=== PATIENT | male | born 1950 | race Caucasian/White ===

== ENCOUNTER 2020-05-04 00:03 | Emergency (ER) | payer MEDICARE, BC ==
[2020-05-04] MEDS ORDERED: Sodium Chloride 0.9% 1,000 ML IV ONE ×2 (00:15→02:20)
[2020-05-04 00:46] LABS: CHLORIDE,CL 93 mmol/L (98-107)
[2020-05-04 00:52] LABS: SODIUM,NA 124 mmol/L (136-145)
[2020-05-04] MEDS ORDERED: Iopamidol 755 Mg/ML 100 ML Bottle IVPUSH STA (00:57)
[2020-05-04] MEDS ORDERED: Acetaminophen 325 MG Tab ONE (01:32)
[2020-05-04] MEDS ORDERED: Acetaminophen 325 MG Tab PO ONE (01:32)
--- NOTE | 2020-05-04 02:38 | EDM.PDOC ---
ED HPI GENERAL MEDICAL PROBLEM - General Chief Complaint: Respiratory Problem Stated Complaint: dyspnea Time Seen by Provider: 05/04/20 00:43 Source of Information: Reports: Patient, EMS, Family History Limitations: Reports: No Limitations - History of Present Illness INITIAL COMMENTS - FREE TEXT/NARRATIVE: Patient comes to ER due to complaint of SOB that developed around 8pm or so this past evening. Notes that he had low grade fever earlier in the morning and chills. Similar problems around 3 weeks ago/negative Covid test. Was told by Oncologist that it might be due to a reaction to his cancer medication. [place] ok day before yesterday. Being treated for lung cancer at [facility]. No new cough/sputum. No new pain complaints. No other acute changes mentioned during ROS. Was around 30 family members over . No one was actively ill. 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 - Related Data Allergies Allergy/AdvReac Type Severity Reaction Status Date / Time clindamycin Allergy Rash Verified 05/04/20 00:24 Home Meds: Home Meds Dabrafenib Mesylate [Tafinlar] 150 mg PO BID 05/04/20 [History] Montelukast [Singulair] 10 mg PO BEDTIME 05/04/20 [History] Trametinib Dimethyl Sulfoxide [Mekinist] 2 mg PO DAILY 05/04/20 [History] lisinopriL [Lisinopril] 10 mg PO DAILY 05/04/20 [History] Past Medical History HEENT History: Reports: Impaired Vision Cardiovascular History: Reports: Other (See Below) Other Cardiovascular History: nonrheumatic aortic valve stenosis Respiratory History: Reports: Sleep Apnea, Other (See Below) Other Respiratory History: RLL non-small cell lung cancer Genitourinary History: Reports: BPH, Prostate Disorder Endocrine/Metabolic History: Reports: Obesity/BMI 30+ Oncologic (Cancer) History: Reports: Lung - Past Surgical History Cardiovascular Surgical History: Reports: None Respiratory Surgical History: Reports: Lung Biopsies, Thoracentesis, Other (See Below) Other Respiratory Surgeries/Procedures: pleur-x drain in place to right lung GI Surgical History: Reports: Bariatric Procedure Male Surgical History: Reports: None Endocrine Surgical History: Reports: None Oncologic Surgical History: Reports: None Social & Family History - Tobacco Use Tobacco Use Status *Q: Never Tobacco User ED ROS GENERAL - Review of Systems Review Of Systems: See Below Constitutional: Reports: Fever, Chills. Denies: Malaise, Weakness, Night Sweats, Diaphoresis, Decreased Appetite, Weight Loss, Weight Gain HEENT: Reports: Other (no acute changes) Respiratory: Reports: Shortness of Breath. Denies: Wheezing, Pleuritic Chest Pain, Cough, Sputum, Hemoptysis Cardiovascular: Reports: No Symptoms. Denies: Chest Pain, Edema, Lightheadedness, Palpitations, Syncope GI/Abdominal: Denies: Abdominal Pain, Constipation, Diarrhea, Distension, Melena, Nausea, Vomiting : Reports: Other (no acute changes reported) Musculoskeletal: Reports: Other (no acute changes from baseline) Skin: Reports: Other (no acute changes) Psychiatric: Reports: No Symptoms ED EXAM, GENERAL - Physical Exam Exam: See Below Exam Limited By: No Limitations General Appearance: Alert, No Apparent Distress, Obese Eye Exam: Bilateral Eye: EOMI, PERRL Ears: Normal External Exam, Hearing Grossly Normal Nose: No: Nasal Deformity, Nasal Swelling, Nasal Drainage Throat/Mouth: Normal Lips, Normal Voice, No Airway Compromise Head: Atraumatic, Normocephalic Neck: Supple, Non-Tender, Full Range of Motion Respiratory/Chest: No Accessory Muscle Use, Chest Non-Tender, Rales (faint/bases). No: Rhonchi, Wheezing, Stridor Cardiovascular: Regular Rate, Rhythm, No Edema, No Murmur GI/Abdominal: Soft, Non-Tender, No Distention (Male) Exam: Deferred Rectal (Males) Exam: Deferred Back Exam: No: CVA Tenderness (L), CVA Tenderness (R), Muscle Spasm Extremities: Non-Tender, No Pedal Edema, Normal Capillary Refill Neurological: Alert, Oriented, Normal Cognition, No Motor/Sensory Deficits Psychiatric: Normal Affect, Normal Mood Skin Exam: Warm, Dry, Intact, Normal Color #1 Interpretation EKG Date: 05/04/20 Time: 00:25 Rhythm: Other (sinus tach) Rate (Beats/Min): 121 [place]: Normal P-Wave: Present QRS: Normal ST-T: Normal QT: Normal Comparison: NA - No Prior EKG Course - Vital Signs Last Recorded V/S: Last Vital Signs Temp 37.5 C 05/04/20 02:18 Pulse 99 12/27/20 02:18 Resp 31 H 05/04/20 02:18 BP 82/58 L 05/04/20 02:18 Pulse Ox 97 05/04/20 02:18 - Orders/Labs/Meds Orders: Active Orders 24 hr Category Date Time Status EKG Documentation Completion [RC] ASDIRECTED Care 05/04/20 00:21 Active Chest 1V Frontal [CR] Stat Exams 05/04/20 00:19 Taken PE Chest [Ang Chest] [CT] Stat Exams 05/04/20 00:56 Taken CULTURE BLOOD [BC] Stat Lab 05/04/20 00:15 Received CULTURE BLOOD [BC] Stat Lab 05/04/20 00:20 Received Sodium Chloride 0.9% [Normal Saline] 1,000 ml Med 05/04/20 02:20 Ordered IV .BOLUS Blood Culture x2 Reflex Set [OM.PC] Stat Oth 05/04/20 00:19 Ordered Medication Orders Sodium Chloride (Normal Saline) 1,000 mls @ 500 mls/hr IV .BOLUS ONE Stop: 05/04/20 04:19 Last Admin: 05/04/20 02:21 Dose: 500 mls/hr Documented by: [id number] Labs: Laboratory Tests 05/04/20 05/04/20 05/04/20 Range/Units 00:15 00:15 00:15 WBC 3.3 L (4.0-10.2) K/uL RBC 4.40 (4.33-5.41) M/uL Hgb 13.5 D (13.1-16.8) g/dL Hct 37.9 L (39.0-49.0) % MCV 86.1 D (84.0-98.0) fL MCH 30.7 (28.2-33.3) pg MCHC 35.6 (31.7-36.0) g/dL RDW 14.9 H (11.2-14.1) % Plt Count 109 L D (150-350) K/uL Neut % (Auto) 80.8 H (45.0-80.0) % Lymph % (Auto) 14.0 (10.0-50.0) % [place] % (Auto) 4.9 (2.0-14.0) % Eos % (Auto) 0.0 (0.0-5.0) % Baso % (Auto) 0.3 (0.0-2.0) % Neut # (Auto) 2.65 (1.40-7.00) K/uL Lymph # (Auto) 0.46 L (0.50-3.50) K/uL [place] # (Auto) 0.16 (0.00-1.00) K/uL Eos # (Auto) 0.00 (0.00-0.50) K/uL Baso # (Auto) 0.01 (0.00-0.20) K/uL D-Dimer, Quantitative > 5000 H (0-400) ng/mL Sodium 124 L* D (136-145) mmol/L Potassium 4.3 (3.5-5.1) mmol/L Chloride 93 L (98-107) mmol/L Carbon Dioxide 19.2 L (21.0-32.0) mmol/L BUN 28 H (7-18) mg/dL Creatinine 0.88 (0.51-1.17) mg/dL Est Cr Clr Drug Dosing 61.18 mL/min Estimated GFR (MDRD) > 60 mL/min Glucose 188 H (74-106) mg/dL Lactic Acid (0.4-2.0) mmol/L Calcium 7.8 L (8.5-10.1) mg/dL Magnesium 1.7 L (1.8-2.4) mg/dL Total Bilirubin 0.5 (0.2-1.0) mg/dL AST 163 H (15-37) U/L ALT 72 (12-78) U/L Alkaline Phosphatase 123 H (46-116) IU/L Troponin I 3.229 H* (0.000-0.056) ng/mL NT-Pro-B Natriuret Pep 54281 H (0-125) pg/mL Total Protein 6.0 L (6.4-8.2) g/dL Albumin 2.7 L (3.4-5.0) g/dL 05/04/20 Range/Units 00:15 WBC (4.0-10.2) K/uL RBC (4.33-5.41) M/uL Hgb (13.1-16.8) g/dL Hct (39.0-49.0) % MCV (84.0-98.0) fL MCH (28.2-33.3) pg MCHC (31.7-36.0) g/dL RDW (11.2-14.1) % Plt Count (150-350) K/uL Neut % (Auto) (45.0-80.0) % Lymph % (Auto) (10.0-50.0) % [place] % (Auto) (2.0-14.0) % Eos % (Auto) (0.0-5.0) % Baso % (Auto) (0.0-2.0) % Neut # (Auto) (1.40-7.00) K/uL Lymph # (Auto) (0.50-3.50) K/uL [place] # (Auto) (0.00-1.00) K/uL Eos # (Auto) (0.00-0.50) K/uL Baso # (Auto) (0.00-0.20) K/uL D-Dimer, Quantitative (0-400) ng/mL Sodium (136-145) mmol/L Potassium (3.5-5.1) mmol/L Chloride (98-107) mmol/L Carbon Dioxide (21.0-32.0) mmol/L BUN (7-18) mg/dL Creatinine (0.51-1.17) mg/dL Est Cr Clr Drug Dosing mL/min Estimated GFR (MDRD) mL/min Glucose (74-106) mg/dL Lactic Acid 1.4 (0.4-2.0) mmol/L Calcium (8.5-10.1) mg/dL Magnesium (1.8-2.4) mg/dL Total Bilirubin (0.2-1.0) mg/dL AST (15-37) U/L ALT (12-78) U/L Alkaline Phosphatase (46-116) IU/L Troponin I (0.000-0.056) ng/mL NT-Pro-B Natriuret Pep (0-125) pg/mL Total Protein (6.4-8.2) g/dL Albumin (3.4-5.0) g/dL Meds: Medications Generic Name Dose Route Start Last Admin Trade Name Freq PRN Reason Stop Dose Admin Sodium Chloride 1,000 mls @ 500 mls/hr 05/04/20 02:20 05/04/20 02:21 Normal Saline IV 05/04/20 04:19 500 mls/hr .BOLUS ONE Administration Discontinued Medications Generic Name Dose Route Start Last Admin Trade Name Erin PRN Reason Stop Dose Admin Acetaminophen 650 mg 05/04/20 01:32 05/04/20 01:33 Tylenol PO 05/04/20 01:33 650 mg NOW ONE Administration Acetaminophen Confirm 05/04/20 01:32 05/04/20 02:20 Tylenol Administered 05/04/20 01:33 Not Given Dose 650 mg .ROUTE .STK-MED ONE Sodium Chloride 1,000 mls @ 999 mls/hr 05/04/20 00:15 05/04/20 00:32 Normal Saline IV 05/04/20 01:15 999 mls/hr .BOLUS ONE Administration Iopamidol 100 ml 05/04/20 00:57 05/04/20 01:31 Isovue-370 (76%) IVPUSH 05/04/20 00:58 100 ml ONETIME STA Administration - Radiology Interpretation CT Results Date: 05/04/20 CT Results Time: 02:10 (Right upper lobe ground glass changes worse than last CT. Ground glass changes in lower/middle right lung better as was left side. Tumors/lymphadenopathy stable. Pulmonary arterial hyperension. ) - Re-Assessments/Exams Free Text/Narrative Re-Assessment/Exam: 05/04/20 02:43 Patient felt better on O2. O2 via NC at a few liters a minute got patient's O2 sats up to higher 90s Febrile when arrived. Given Tylenol. Fever improved. Labs obtained. Low WBC noted/patient is immune suppressed. Blood cultures pending. Hyponatremia/low Mg noted. DDimer over 5000. Trop over 3. No acute ST changes noted on EKG. Patient does not complain of chest pain. Lactic acid [place] [address]. No evidence of acute fluid overload noted on exam/plain films. Patient received IV fluid. BP ran on lower side. Patient not complaining of dizziness/worsening symptoms and continued to rest comfortably. CT of chest performed and no PE identified. Does have worsning ground glass changes right upper lung that may signify worsening pneumonia. Most recent BP however took another dip and was 82/58. Second liter of IV fluid started. Call placed to [facility] at [phone]. Still have not been able to make contact with hospitalist in order to arrange transfer of patient to their facility. 05/04/20 03:18 Call back received from [facility]/ at [phone]. Accepted patient for transfer. Patient given ASA/Heparin bolus/Rocephin prior to transfer. It was recommended to us to give Doxy instead of Zithromax in case of QT prolongation however IV form is not available here at this site. PO dose administered. Waiting for bed conformation at this time. Departure - Departure Time of Disposition: 04:00 Disposition: DC/Tfer to Acute Hospital 02 Condition: Fair Clinical Impression: SOB (shortness of breath), Hypomagnesemia, Hyponatremia, Elevated troponin CHF (congestive heart failure) Qualifiers: Heart failure type: unspecified Heart failure chronicity: unspecified Qualified Code(s): I50.9 - Heart failure, unspecified Fever Qualifiers: Fever type: unspecified Qualified Code(s): R50.9 - Fever, unspecified Lung cancer Qualifiers: Laterality: unspecified laterality Lung location: unspecified part of lung Qualified Code(s): C34.90 - Malignant neoplasm of unspecified part of unspecified bronchus or lung - Discharge Information *PRESCRIPTION DRUG MONITORING PROGRAM REVIEWED*: Not Applicable *COPY OF PRESCRIPTION DRUG MONITORING REPORT IN PATIENT YASEMIN: Not Applicable Sepsis Event Note (ED) - Evaluation Sepsis Screening Result: Possible Sepsis Risk - Focused Exam Vital Signs: Vital Signs Temp Pulse Resp BP Pulse Ox 05/04/20 02:18 37.5 C 99 31 H 82/58 L 97 05/04/20 01:34 39.6 C H 112 H 25 H 98/75 96 05/04/20 01:00 115 H 28 H 97/69 98 05/04/20 00:45 114 H 25 H 94/71 100 05/04/20 00:30 119 H 29 H 101/73 93 L 05/04/20 00:24 38.2 C H 126 H 30 H 100/69 95 - My Orders Last 24 Hours: My Active Orders 05/04/20 00:15 CULTURE BLOOD [BC] Stat 05/04/20 00:19 Chest 1V Frontal [CR] Stat Blood Culture x2 Reflex Set [OM.PC] Stat 05/04/20 00:20 CULTURE BLOOD [BC] Stat 05/04/20 00:21 EKG Documentation Completion [RC] ASDIRECTED 05/04/20 00:56 PE Chest [Ang Chest] [CT] Stat 05/04/20 02:20 Sodium Chloride 0.9% [Normal Saline] 1,000 ml IV .BOLUS - Assessment/Plan Last 24 Hours: My Active Orders 05/04/20 00:15 CULTURE BLOOD [BC] Stat 05/04/20 00:19 Chest 1V Frontal [CR] Stat Blood Culture x2 Reflex Set [OM.PC] Stat 05/04/20 00:20 CULTURE BLOOD [BC] Stat 05/04/20 00:21 EKG Documentation Completion [RC] ASDIRECTED 05/04/20 00:56 PE Chest [Ang Chest] [CT] Stat 05/04/20 02:20 Sodium Chloride 0.9% [Normal Saline] 1,000 ml IV .BOLUS
[2020-05-04] MEDS ORDERED: Aspirin 81 MG Tab.Chew PO ONE (03:12)
[2020-05-04] MEDS ORDERED: cefTRIAXone 2 GM Vial IVPUSH ONE (03:14)
[2020-05-04] MEDS ORDERED: Doxycycline Monohydrate 100 MG Cap PO ONE (03:14)
[2020-05-04] MEDS ORDERED: Heparin Sodium/0.45% NaCl 500 ML IV SCH (03:30)
[2020-05-04] MEDS ORDERED: Heparin Sodium 5,000 Units/ML Vial IVPUSH ONE (03:48)
[2020-05-04 04:10] LABS: PTT,PARTIAL THROMBOPLSTIN TIME 34.5 SEC (24.5-32.8)
== END 2020-05-04 04:22 ==
LOC: LL.ED 00:03
DX: I50.9 Heart failure, unspecified (principal); E83.42 Hypomagnesemia; E87.1 Hypo-osmolality and hyponatremia; R79.89 Other specified abnormal findings of blood chemistry; C34.90 Malignant neoplasm of unspecified part of unspecified bronchus or lung; E66.9 Obesity, unspecified; Z68.31 Body mass index [BMI] 31.0-31.9, adult; Z88.1 Allergy status to other antibiotic agents; Z79.899 Other long term (current) drug therapy
CPT/HCPCS: 36415; 71045; 71275; 80053; 83605; 83735; 83880; 84484; 85025; 85379; 85610; 85730; 87040; 93005; 96365; 96375; 99285-25; A9270-GY; J0696; J1644; J7030; Q9967

== ENCOUNTER 2021-05-25 12:17 | Inpatient (IN) | payer MEDICARE ==
[2021-05-25] MEDS ORDERED: Zolpidem 5 MG Tab PO PRN (14:20)
[2021-05-25] MEDS ORDERED: Bisacodyl 5 MG Tab PO PRN (14:20)
[2021-05-25] MEDS ORDERED: Sennosides 8.6 MG Tab PO PRN (14:20)
[2021-05-25] MEDS ORDERED: Polyethylene Glycol 3350 Powder 17 GM Packet PO PRN (14:20)
[2021-05-25] MEDS ORDERED: Calcium Carbonate 500 MG Tab.Chew PO PRN (14:20)
[2021-05-25] MEDS ORDERED: Al and Mag Hydroxide/Diphenhydramine/Lidocaine/Simethicone 237 ML Bottle PO PRN (14:42)
[2021-05-25] MEDS ORDERED: oxyCODONE 5 MG Tab PO PRN (16:00)
[2021-05-25] MEDS ORDERED: Aluminum Hydroxide/Magnesium Hydroxide/Simethicone Susp 30 ML Cup PO PRN (16:00)
[2021-05-25] MEDS ORDERED: Ondansetron 4 MG Tab.DIS PO PRN (16:00)
[2021-05-25] MEDS ORDERED: Promethazine 25 MG Tab PO PRN (16:00)
[2021-05-25] MEDS ORDERED: Albuterol 6.7 GM Inhaler INH PRN (16:00)
[2021-05-25] MEDS ORDERED: Meropenem 500 MG SDV IV SCH (16:00)
[2021-05-25] MEDS: Meropenem 500 MG in Sodium Chloride 0.9% 100 ML IV SCH ×2 (16:23→23:43)
[2021-05-25] MEDS: Enoxaparin 40 MG/0.4 ML Syringe SUBCUT SCH (16:23)
[2021-05-25] MEDS: Sodium Chloride 0.9% 10 ML Syringe FLUSH SCH ×4 (16:24→23:44)
[2021-05-25] MEDS: Magnesium Oxide 400 MG Tab PO SCH (17:35)
[2021-05-25] MEDS: Multivitamin Tab PO SCH (17:35)
[2021-05-25] MEDS: Montelukast 10 MG Tab PO SCH (19:27)
[2021-05-26] MEDS ORDERED: Non-Formulary Medication 1 Each (Biotin [Biotin] 5 MG Capsule) PO SCH (08:00)
[2021-05-26] MEDS: Polyethylene Glycol 3350 Powder 17 GM Packet PO SCH (08:57)
[2021-05-26] MEDS: Magnesium Oxide 400 MG Tab PO SCH ×2 (08:58→17:09)
[2021-05-26] MEDS: Cyanocobalamin (Vitamin B12) 1,000 MCG Tab PO SCH (08:59)
[2021-05-26] MEDS: Lisinopril 5 MG Tab PO SCH (08:59)
[2021-05-26] MEDS: Aspirin 81 MG Tab.EC PO SCH (09:03)
[2021-05-26] MEDS: Calcium Carbonate/Vitamin D3 625 MG-125 Unit Tab PO SCH (09:03)
[2021-05-26] MEDS: Rosuvastatin 10 MG Tab PO SCH (09:03)
[2021-05-26] MEDS: Omeprazole 20 MG Cap.CR PO SCH (09:04)
[2021-05-26] MEDS: Metoprolol Succinate 25 MG Tab.ER PO SCH (09:04)
[2021-05-26] MEDS: Multivitamin Tab PO SCH ×2 (09:06→17:09)
[2021-05-26] MEDS: FLUoxetine 20 MG Cap PO SCH (09:06)
[2021-05-26] MEDS: Cholecalciferol (Vitamin D3) 25 MCG Tab PO SCH (09:06)
[2021-05-26] MEDS: Bisacodyl 10 MG Supp RECTAL SCH (09:07)
[2021-05-26] MEDS: Meropenem 500 MG in Sodium Chloride 0.9% 100 ML IV SCH ×2 (09:08→17:11)
[2021-05-26] MEDS: Sodium Chloride 0.9% 10 ML Syringe FLUSH SCH ×6 (09:08→17:09)
[2021-05-26] MEDS: Levothyroxine 25 MCG Tab PO SCH (09:55)
[2021-05-26] MEDS: Enoxaparin 40 MG/0.4 ML Syringe SUBCUT SCH (17:09)
[2021-05-26] MEDS: Montelukast 10 MG Tab PO SCH (20:08)
[2021-05-27] MEDS: Sodium Chloride 0.9% 10 ML Syringe FLUSH SCH ×10 (00:32→23:41)
[2021-05-27] MEDS: Meropenem 500 MG in Sodium Chloride 0.9% 100 ML IV SCH ×4 (00:32→23:12)
[2021-05-27] MEDS: Metoprolol Succinate 25 MG Tab.ER PO SCH (09:37)
[2021-05-27] MEDS: Calcium Carbonate/Vitamin D3 625 MG-125 Unit Tab PO SCH (09:39)
[2021-05-27] MEDS: Rosuvastatin 10 MG Tab PO SCH (09:39)
[2021-05-27] MEDS: Magnesium Oxide 400 MG Tab PO SCH ×2 (09:39→17:02)
[2021-05-27] MEDS: Multivitamin Tab PO SCH ×2 (09:39→17:01)
[2021-05-27] MEDS: Lisinopril 5 MG Tab PO SCH (09:40)
[2021-05-27] MEDS: Aspirin 81 MG Tab.EC PO SCH (09:40)
[2021-05-27] MEDS: Omeprazole 20 MG Cap.CR PO SCH (09:43)
[2021-05-27] MEDS: FLUoxetine 20 MG Cap PO SCH (09:44)
[2021-05-27] MEDS: Cyanocobalamin (Vitamin B12) 1,000 MCG Tab PO SCH (09:44)
[2021-05-27] MEDS: Polyethylene Glycol 3350 Powder 17 GM Packet PO SCH (09:45)
[2021-05-27] MEDS: Bisacodyl 10 MG Supp RECTAL SCH (09:45)
[2021-05-27] MEDS: Cholecalciferol (Vitamin D3) 25 MCG Tab PO SCH (10:01)
[2021-05-27 10:26] LABS: CHLORIDE,CL 109 mmol/L (98-107); SODIUM,NA 143 mmol/L (136-145)
[2021-05-27 10:30] LABS: ANION GAP 11.1 meq/L (7-15)
[2021-05-27] MEDS: Levothyroxine 25 MCG Tab PO SCH (10:51)
[2021-05-27] MEDS: Enoxaparin 40 MG/0.4 ML Syringe SUBCUT SCH (16:30)
[2021-05-27] MEDS: Montelukast 10 MG Tab PO SCH (17:01)
[2021-05-28] MEDS: Rosuvastatin 10 MG Tab PO SCH (09:06)
[2021-05-28] MEDS: Omeprazole 20 MG Cap.CR PO SCH (09:06)
[2021-05-28] MEDS: Calcium Carbonate/Vitamin D3 625 MG-125 Unit Tab PO SCH (09:06)
[2021-05-28] MEDS: Lisinopril 5 MG Tab PO SCH (09:06)
[2021-05-28] MEDS: Cyanocobalamin (Vitamin B12) 1,000 MCG Tab PO SCH (09:07)
[2021-05-28] MEDS: Metoprolol Succinate 25 MG Tab.ER PO SCH (09:07)
[2021-05-28] MEDS: Magnesium Oxide 400 MG Tab PO SCH ×2 (09:08→17:17)
[2021-05-28] MEDS: FLUoxetine 20 MG Cap PO SCH (09:08)
[2021-05-28] MEDS: Meropenem 500 MG in Sodium Chloride 0.9% 100 ML IV SCH ×3 (09:08→23:04)
[2021-05-28] MEDS: Multivitamin Tab PO SCH ×2 (09:08→16:31)
[2021-05-28] MEDS: Polyethylene Glycol 3350 Powder 17 GM Packet PO SCH (09:09)
[2021-05-28] MEDS: Bisacodyl 10 MG Supp RECTAL SCH (09:09)
[2021-05-28] MEDS: Aspirin 81 MG Tab.EC PO SCH (09:10)
[2021-05-28] MEDS: Sodium Chloride 0.9% 10 ML Syringe FLUSH SCH ×8 (09:12→23:30)
[2021-05-28] MEDS: Cholecalciferol (Vitamin D3) 25 MCG Tab PO SCH (09:13)
[2021-05-28] MEDS: Levothyroxine 25 MCG Tab PO SCH (10:40)
[2021-05-28] MEDS: Enoxaparin 40 MG/0.4 ML Syringe SUBCUT SCH (16:30)
[2021-05-28] MEDS: Montelukast 10 MG Tab PO SCH (16:31)
[2021-05-28] MEDS ORDERED: Bisacodyl 10 MG Supp RECTAL PRN (17:23)
[2021-05-29] MEDS: Meropenem 500 MG in Sodium Chloride 0.9% 100 ML IV SCH ×3 (07:57→23:16)
[2021-05-29] MEDS: Sodium Chloride 0.9% 10 ML Syringe FLUSH SCH ×8 (07:57→23:48)
[2021-05-29] MEDS: Polyethylene Glycol 3350 Powder 17 GM Packet PO SCH (07:59)
[2021-05-29] MEDS: Magnesium Oxide 400 MG Tab PO SCH ×2 (08:00→17:30)
[2021-05-29] MEDS: Aspirin 81 MG Tab.EC PO SCH (08:00)
[2021-05-29] MEDS: Multivitamin Tab PO SCH ×2 (08:00→16:22)
[2021-05-29] MEDS: Omeprazole 20 MG Cap.CR PO SCH (08:00)
[2021-05-29] MEDS: Calcium Carbonate/Vitamin D3 625 MG-125 Unit Tab PO SCH (08:00)
[2021-05-29] MEDS: Rosuvastatin 10 MG Tab PO SCH (08:00)
[2021-05-29] MEDS: FLUoxetine 20 MG Cap PO SCH (08:01)
[2021-05-29] MEDS: Cyanocobalamin (Vitamin B12) 1,000 MCG Tab PO SCH (08:01)
[2021-05-29] MEDS: Lisinopril 5 MG Tab PO SCH (08:06)
[2021-05-29] MEDS: Metoprolol Succinate 25 MG Tab.ER PO SCH (08:07)
[2021-05-29] MEDS: Cholecalciferol (Vitamin D3) 25 MCG Tab PO SCH (08:10)
[2021-05-29] MEDS: Levothyroxine 25 MCG Tab PO SCH (10:22)
[2021-05-29] MEDS: Enoxaparin 40 MG/0.4 ML Syringe SUBCUT SCH (16:22)
[2021-05-29] MEDS: Montelukast 10 MG Tab PO SCH (16:22)
[2021-05-30] MEDS: Meropenem 500 MG in Sodium Chloride 0.9% 100 ML IV SCH ×3 (08:20→23:39)
[2021-05-30] MEDS: Omeprazole 20 MG Cap.CR PO SCH (08:21)
[2021-05-30] MEDS: Magnesium Oxide 400 MG Tab PO SCH ×2 (08:21→17:24)
[2021-05-30] MEDS: Metoprolol Succinate 25 MG Tab.ER PO SCH (08:21)
[2021-05-30] MEDS: Sodium Chloride 0.9% 10 ML Syringe FLUSH SCH ×8 (08:21→23:40)
[2021-05-30] MEDS: Rosuvastatin 10 MG Tab PO SCH (08:21)
[2021-05-30] MEDS: Multivitamin Tab PO SCH ×2 (08:22→16:12)
[2021-05-30] MEDS: Aspirin 81 MG Tab.EC PO SCH (08:22)
[2021-05-30] MEDS: FLUoxetine 20 MG Cap PO SCH (08:22)
[2021-05-30] MEDS: Cyanocobalamin (Vitamin B12) 1,000 MCG Tab PO SCH (08:22)
[2021-05-30] MEDS: Polyethylene Glycol 3350 Powder 17 GM Packet PO SCH (08:23)
[2021-05-30] MEDS: Lisinopril 5 MG Tab PO SCH ×2 (08:23→10:32)
[2021-05-30] MEDS: Calcium Carbonate/Vitamin D3 625 MG-125 Unit Tab PO SCH (08:23)
[2021-05-30] MEDS: Cholecalciferol (Vitamin D3) 25 MCG Tab PO SCH (08:24)
[2021-05-30] MEDS: Levothyroxine 25 MCG Tab PO SCH (10:30)
[2021-05-30] MEDS: Montelukast 10 MG Tab PO SCH (16:12)
[2021-05-30] MEDS: Enoxaparin 40 MG/0.4 ML Syringe SUBCUT SCH (16:13)
[2021-05-31] MEDS: Rosuvastatin 10 MG Tab PO SCH (07:51)
[2021-05-31] MEDS: Cyanocobalamin (Vitamin B12) 1,000 MCG Tab PO SCH (07:51)
[2021-05-31] MEDS: FLUoxetine 20 MG Cap PO SCH (07:51)
[2021-05-31] MEDS: Calcium Carbonate/Vitamin D3 625 MG-125 Unit Tab PO SCH (07:52)
[2021-05-31] MEDS: Lisinopril 5 MG Tab PO SCH (07:52)
[2021-05-31] MEDS: Metoprolol Succinate 25 MG Tab.ER PO SCH (07:54)
[2021-05-31] MEDS: Omeprazole 20 MG Cap.CR PO SCH (07:55)
[2021-05-31] MEDS: Aspirin 81 MG Tab.EC PO SCH (07:55)
[2021-05-31] MEDS: Cholecalciferol (Vitamin D3) 25 MCG Tab PO SCH (07:55)
[2021-05-31] MEDS: Meropenem 500 MG in Sodium Chloride 0.9% 100 ML IV SCH ×2 (07:55→16:11)
[2021-05-31] MEDS: Magnesium Oxide 400 MG Tab PO SCH ×2 (07:55→16:11)
[2021-05-31] MEDS: Multivitamin Tab PO SCH ×2 (07:55→16:10)
[2021-05-31] MEDS: Sodium Chloride 0.9% 10 ML Syringe FLUSH SCH ×7 (08:00→16:12)
[2021-05-31] MEDS: Polyethylene Glycol 3350 Powder 17 GM Packet PO SCH (09:31)
[2021-05-31] MEDS: Levothyroxine 25 MCG Tab PO SCH (10:24)
[2021-05-31] MEDS: Enoxaparin 40 MG/0.4 ML Syringe SUBCUT SCH (16:10)
[2021-05-31] MEDS: Montelukast 10 MG Tab PO SCH (16:11)
[2021-06-01] MEDS: Meropenem 500 MG in Sodium Chloride 0.9% 100 ML IV SCH ×4 (00:01→23:01)
[2021-06-01] MEDS: Sodium Chloride 0.9% 10 ML Syringe FLUSH SCH ×10 (00:01→23:33)
[2021-06-01] MEDS: Lisinopril 5 MG Tab PO SCH (08:29)
[2021-06-01] MEDS: Aspirin 81 MG Tab.EC PO SCH (08:29)
[2021-06-01] MEDS: Magnesium Oxide 400 MG Tab PO SCH ×2 (08:32→17:04)
[2021-06-01] MEDS: Calcium Carbonate/Vitamin D3 625 MG-125 Unit Tab PO SCH (08:32)
[2021-06-01] MEDS: Metoprolol Succinate 25 MG Tab.ER PO SCH (08:32)
[2021-06-01] MEDS: Cyanocobalamin (Vitamin B12) 1,000 MCG Tab PO SCH (08:33)
[2021-06-01] MEDS: Rosuvastatin 10 MG Tab PO SCH (08:33)
[2021-06-01] MEDS: Multivitamin Tab PO SCH ×2 (08:34→17:03)
[2021-06-01] MEDS: Omeprazole 20 MG Cap.CR PO SCH (08:34)
[2021-06-01] MEDS: FLUoxetine 20 MG Cap PO SCH (08:34)
[2021-06-01] MEDS: Polyethylene Glycol 3350 Powder 17 GM Packet PO SCH (08:35)
[2021-06-01] MEDS: Cholecalciferol (Vitamin D3) 25 MCG Tab PO SCH (08:37)
[2021-06-01] MEDS: Levothyroxine 25 MCG Tab PO SCH (11:25)
[2021-06-01] MEDS: Enoxaparin 40 MG/0.4 ML Syringe SUBCUT SCH (17:02)
[2021-06-01] MEDS: Montelukast 10 MG Tab PO SCH (17:03)
[2021-06-01] MEDS ORDERED: Alteplase 2 MG Vial IVPUSH ONE (19:04)
[2021-06-02] MEDS: FLUoxetine 20 MG Cap PO SCH (08:00)
[2021-06-02] MEDS: Rosuvastatin 10 MG Tab PO SCH (08:00)
[2021-06-02] MEDS: Cyanocobalamin (Vitamin B12) 1,000 MCG Tab PO SCH (08:01)
[2021-06-02] MEDS: Aspirin 81 MG Tab.EC PO SCH (08:02)
[2021-06-02] MEDS: Omeprazole 20 MG Cap.CR PO SCH (08:02)
[2021-06-02] MEDS: Magnesium Oxide 400 MG Tab PO SCH ×2 (08:02→15:53)
[2021-06-02] MEDS: Multivitamin Tab PO SCH ×2 (08:02→15:53)
[2021-06-02] MEDS: Cholecalciferol (Vitamin D3) 25 MCG Tab PO SCH (08:03)
[2021-06-02] MEDS: Polyethylene Glycol 3350 Powder 17 GM Packet PO SCH (08:03)
[2021-06-02] MEDS: Calcium Carbonate/Vitamin D3 625 MG-125 Unit Tab PO SCH (08:03)
[2021-06-02] MEDS: Lisinopril 5 MG Tab PO SCH (08:04)
[2021-06-02] MEDS: Metoprolol Succinate 25 MG Tab.ER PO SCH (08:05)
[2021-06-02] MEDS: Meropenem 500 MG in Sodium Chloride 0.9% 100 ML IV SCH ×3 (08:06→23:27)
[2021-06-02] MEDS: Sodium Chloride 0.9% 10 ML Syringe FLUSH SCH ×8 (08:06→23:32)
[2021-06-02] MEDS: Levothyroxine 25 MCG Tab PO SCH (10:22)
[2021-06-02] MEDS: Montelukast 10 MG Tab PO SCH (15:53)
[2021-06-02] MEDS: Enoxaparin 40 MG/0.4 ML Syringe SUBCUT SCH (15:53)
[2021-06-03] MEDS: Metoprolol Succinate 25 MG Tab.ER PO SCH (08:39)
[2021-06-03] MEDS: Cholecalciferol (Vitamin D3) 25 MCG Tab PO SCH (08:40)
[2021-06-03] MEDS: Multivitamin Tab PO SCH ×2 (08:40→16:24)
[2021-06-03] MEDS: Polyethylene Glycol 3350 Powder 17 GM Packet PO SCH (08:41)
[2021-06-03] MEDS: Calcium Carbonate/Vitamin D3 625 MG-125 Unit Tab PO SCH (08:41)
[2021-06-03] MEDS: FLUoxetine 20 MG Cap PO SCH (08:41)
[2021-06-03] MEDS: Magnesium Oxide 400 MG Tab PO SCH ×2 (08:41→16:24)
[2021-06-03] MEDS: Aspirin 81 MG Tab.EC PO SCH (08:41)
[2021-06-03] MEDS: Cyanocobalamin (Vitamin B12) 1,000 MCG Tab PO SCH (08:42)
[2021-06-03] MEDS: Omeprazole 20 MG Cap.CR PO SCH (08:42)
[2021-06-03] MEDS: Rosuvastatin 10 MG Tab PO SCH (08:43)
[2021-06-03] MEDS: Lisinopril 5 MG Tab PO SCH (08:44)
[2021-06-03] MEDS: Sodium Chloride 0.9% 10 ML Syringe FLUSH SCH ×6 (08:46→17:07)
[2021-06-03] MEDS: Meropenem 500 MG in Sodium Chloride 0.9% 100 ML IV SCH ×2 (08:47→16:30)
[2021-06-03 10:03] LABS: ANION GAP 10.1 meq/L (7-15)
[2021-06-03] MEDS: Levothyroxine 25 MCG Tab PO SCH (10:10)
[2021-06-03] MEDS: Montelukast 10 MG Tab PO SCH (16:25)
[2021-06-03] MEDS: Enoxaparin 40 MG/0.4 ML Syringe SUBCUT SCH (16:25)
[2021-06-04] MEDS: Sodium Chloride 0.9% 10 ML Syringe FLUSH SCH ×10 (00:33→23:42)
[2021-06-04] MEDS: Meropenem 500 MG in Sodium Chloride 0.9% 100 ML IV SCH ×4 (00:33→23:37)
[2021-06-04] MEDS: Melatonin 3 MG Tab PO PRN ×2 (01:04→23:40)
[2021-06-04] MEDS: Aspirin 81 MG Tab.EC PO SCH (08:17)
[2021-06-04] MEDS: Cholecalciferol (Vitamin D3) 25 MCG Tab PO SCH (08:17)
[2021-06-04] MEDS: Rosuvastatin 10 MG Tab PO SCH (08:17)
[2021-06-04] MEDS: Lisinopril 5 MG Tab PO SCH (08:18)
[2021-06-04] MEDS: FLUoxetine 20 MG Cap PO SCH (08:19)
[2021-06-04] MEDS: Metoprolol Succinate 25 MG Tab.ER PO SCH (08:19)
[2021-06-04] MEDS: Calcium Carbonate/Vitamin D3 625 MG-125 Unit Tab PO SCH (08:19)
[2021-06-04] MEDS: Cyanocobalamin (Vitamin B12) 1,000 MCG Tab PO SCH (08:19)
[2021-06-04] MEDS: Omeprazole 20 MG Cap.CR PO SCH (08:19)
[2021-06-04] MEDS: Magnesium Oxide 400 MG Tab PO SCH ×2 (08:20→15:57)
[2021-06-04] MEDS: Polyethylene Glycol 3350 Powder 17 GM Packet PO SCH (08:20)
[2021-06-04] MEDS: Multivitamin Tab PO SCH ×2 (08:20→15:56)
[2021-06-04] MEDS: Levothyroxine 25 MCG Tab PO SCH (10:22)
[2021-06-04] MEDS: Montelukast 10 MG Tab PO SCH (15:56)
[2021-06-04] MEDS: Enoxaparin 40 MG/0.4 ML Syringe SUBCUT SCH (15:58)
[2021-06-05] MEDS: Sodium Chloride 0.9% 10 ML Syringe FLUSH SCH ×6 (07:22→15:53)
[2021-06-05] MEDS: Meropenem 500 MG in Sodium Chloride 0.9% 100 ML IV SCH ×2 (07:22→15:52)
[2021-06-05] MEDS: Magnesium Oxide 400 MG Tab PO SCH ×2 (07:24→15:54)
[2021-06-05] MEDS: Aspirin 81 MG Tab.EC PO SCH (07:24)
[2021-06-05] MEDS: Rosuvastatin 10 MG Tab PO SCH (07:24)
[2021-06-05] MEDS: Cholecalciferol (Vitamin D3) 25 MCG Tab PO SCH (07:24)
[2021-06-05] MEDS: Multivitamin Tab PO SCH ×2 (07:25→15:54)
[2021-06-05] MEDS: Omeprazole 20 MG Cap.CR PO SCH (07:25)
[2021-06-05] MEDS: Calcium Carbonate/Vitamin D3 625 MG-125 Unit Tab PO SCH (07:25)
[2021-06-05] MEDS: FLUoxetine 20 MG Cap PO SCH (07:25)
[2021-06-05] MEDS: Cyanocobalamin (Vitamin B12) 1,000 MCG Tab PO SCH (07:26)
[2021-06-05] MEDS: Polyethylene Glycol 3350 Powder 17 GM Packet PO SCH (07:27)
[2021-06-05] MEDS: Metoprolol Succinate 25 MG Tab.ER PO SCH (07:27)
[2021-06-05] MEDS: Lisinopril 5 MG Tab PO SCH (07:30)
[2021-06-05 10:22] LABS: ANION GAP 5.3 meq/L (7-15); CHLORIDE,CL 107 mmol/L (98-107); SODIUM,NA 142 mmol/L (136-145)
[2021-06-05] MEDS: Levothyroxine 25 MCG Tab PO SCH (10:52)
[2021-06-05] MEDS: Montelukast 10 MG Tab PO SCH (15:54)
[2021-06-05] MEDS: Enoxaparin 40 MG/0.4 ML Syringe SUBCUT SCH (15:54)
[2021-06-06] MEDS: Melatonin 3 MG Tab PO PRN ×2 (00:04→23:47)
[2021-06-06] MEDS: Sodium Chloride 0.9% 10 ML Syringe FLUSH SCH ×10 (00:05→23:48)
[2021-06-06] MEDS: Meropenem 500 MG in Sodium Chloride 0.9% 100 ML IV SCH ×4 (00:06→23:49)
[2021-06-06] MEDS: Metoprolol Succinate 25 MG Tab.ER PO SCH (07:58)
[2021-06-06] MEDS: Cyanocobalamin (Vitamin B12) 1,000 MCG Tab PO SCH (08:00)
[2021-06-06] MEDS: Rosuvastatin 10 MG Tab PO SCH (08:00)
[2021-06-06] MEDS: Aspirin 81 MG Tab.EC PO SCH (08:01)
[2021-06-06] MEDS: Calcium Carbonate/Vitamin D3 625 MG-125 Unit Tab PO SCH (08:01)
[2021-06-06] MEDS: FLUoxetine 20 MG Cap PO SCH (08:01)
[2021-06-06] MEDS: Multivitamin Tab PO SCH ×2 (08:01→16:01)
[2021-06-06] MEDS: Cholecalciferol (Vitamin D3) 25 MCG Tab PO SCH (08:02)
[2021-06-06] MEDS: Lisinopril 5 MG Tab PO SCH (08:02)
[2021-06-06] MEDS: Omeprazole 20 MG Cap.CR PO SCH (08:03)
[2021-06-06] MEDS: Polyethylene Glycol 3350 Powder 17 GM Packet PO SCH (08:04)
[2021-06-06] MEDS: Magnesium Oxide 400 MG Tab PO SCH ×2 (08:04→16:02)
[2021-06-06] MEDS: Levothyroxine 25 MCG Tab PO SCH (10:57)
[2021-06-06] MEDS: Montelukast 10 MG Tab PO SCH (16:01)
[2021-06-06] MEDS: Enoxaparin 40 MG/0.4 ML Syringe SUBCUT SCH (16:01)
[2021-06-07] MEDS: Meropenem 500 MG in Sodium Chloride 0.9% 100 ML IV SCH ×3 (08:06→23:35)
[2021-06-07] MEDS: Metoprolol Succinate 25 MG Tab.ER PO SCH (08:06)
[2021-06-07] MEDS: Rosuvastatin 10 MG Tab PO SCH (08:08)
[2021-06-07] MEDS: Multivitamin Tab PO SCH ×2 (08:09→16:53)
[2021-06-07] MEDS: Magnesium Oxide 400 MG Tab PO SCH ×2 (08:09→16:54)
[2021-06-07] MEDS: Aspirin 81 MG Tab.EC PO SCH (08:09)
[2021-06-07] MEDS: Omeprazole 20 MG Cap.CR PO SCH (08:09)
[2021-06-07] MEDS: Calcium Carbonate/Vitamin D3 625 MG-125 Unit Tab PO SCH (08:10)
[2021-06-07] MEDS: FLUoxetine 20 MG Cap PO SCH (08:10)
[2021-06-07] MEDS: Cholecalciferol (Vitamin D3) 25 MCG Tab PO SCH (08:10)
[2021-06-07] MEDS: Cyanocobalamin (Vitamin B12) 1,000 MCG Tab PO SCH (08:11)
[2021-06-07] MEDS: Lisinopril 5 MG Tab PO SCH (08:11)
[2021-06-07] MEDS: Sodium Chloride 0.9% 10 ML Syringe FLUSH SCH ×8 (08:12→23:36)
[2021-06-07] MEDS: Polyethylene Glycol 3350 Powder 17 GM Packet PO SCH (08:13)
[2021-06-07] MEDS: Levothyroxine 25 MCG Tab PO SCH (10:52)
[2021-06-07] MEDS: Enoxaparin 40 MG/0.4 ML Syringe SUBCUT SCH (16:53)
[2021-06-07] MEDS: Montelukast 10 MG Tab PO SCH (16:53)
[2021-06-07] MEDS: Melatonin 3 MG Tab PO PRN (23:35)
[2021-06-08] MEDS: Meropenem 500 MG in Sodium Chloride 0.9% 100 ML IV SCH ×3 (07:20→23:47)
[2021-06-08] MEDS: Sodium Chloride 0.9% 10 ML Syringe FLUSH SCH ×8 (07:21→23:48)
[2021-06-08] MEDS: Metoprolol Succinate 25 MG Tab.ER PO SCH (07:21)
[2021-06-08] MEDS: Rosuvastatin 10 MG Tab PO SCH (07:21)
[2021-06-08] MEDS: Cholecalciferol (Vitamin D3) 25 MCG Tab PO SCH (07:23)
[2021-06-08] MEDS: Cyanocobalamin (Vitamin B12) 1,000 MCG Tab PO SCH (07:23)
[2021-06-08] MEDS: Multivitamin Tab PO SCH ×2 (07:23→16:41)
[2021-06-08] MEDS: FLUoxetine 20 MG Cap PO SCH (07:24)
[2021-06-08] MEDS: Aspirin 81 MG Tab.EC PO SCH (07:24)
[2021-06-08] MEDS: Lisinopril 5 MG Tab PO SCH (07:25)
[2021-06-08] MEDS: Magnesium Oxide 400 MG Tab PO SCH ×2 (07:25→16:41)
[2021-06-08] MEDS: Omeprazole 20 MG Cap.CR PO SCH (07:25)
[2021-06-08] MEDS: Calcium Carbonate/Vitamin D3 625 MG-125 Unit Tab PO SCH (07:26)
[2021-06-08] MEDS: Polyethylene Glycol 3350 Powder 17 GM Packet PO SCH (07:26)
[2021-06-08] MEDS: Levothyroxine 25 MCG Tab PO SCH (09:21)
[2021-06-08] MEDS: Montelukast 10 MG Tab PO SCH (16:41)
[2021-06-08] MEDS: Enoxaparin 40 MG/0.4 ML Syringe SUBCUT SCH (16:42)
[2021-06-08] MEDS: Melatonin 3 MG Tab PO PRN (23:48)
[2021-06-09] MEDS: Rosuvastatin 10 MG Tab PO SCH (07:48)
[2021-06-09] MEDS: Meropenem 500 MG in Sodium Chloride 0.9% 100 ML IV SCH ×2 (07:48→15:53)
[2021-06-09] MEDS: Aspirin 81 MG Tab.EC PO SCH (07:49)
[2021-06-09] MEDS: Calcium Carbonate/Vitamin D3 625 MG-125 Unit Tab PO SCH (07:49)
[2021-06-09] MEDS: Omeprazole 20 MG Cap.CR PO SCH (07:49)
[2021-06-09] MEDS: FLUoxetine 20 MG Cap PO SCH (07:50)
[2021-06-09] MEDS: Cholecalciferol (Vitamin D3) 25 MCG Tab PO SCH (07:50)
[2021-06-09] MEDS: Lisinopril 5 MG Tab PO SCH (07:51)
[2021-06-09] MEDS: Metoprolol Succinate 25 MG Tab.ER PO SCH (07:51)
[2021-06-09] MEDS: Multivitamin Tab PO SCH ×2 (07:52→15:53)
[2021-06-09] MEDS: Cyanocobalamin (Vitamin B12) 1,000 MCG Tab PO SCH (07:52)
[2021-06-09] MEDS: Magnesium Oxide 400 MG Tab PO SCH ×2 (07:53→15:53)
[2021-06-09] MEDS: Sodium Chloride 0.9% 10 ML Syringe FLUSH SCH ×6 (07:54→15:55)
[2021-06-09] MEDS: Polyethylene Glycol 3350 Powder 17 GM Packet PO SCH (07:54)
[2021-06-09] MEDS: Levothyroxine 25 MCG Tab PO SCH (10:00)
[2021-06-09] MEDS: Montelukast 10 MG Tab PO SCH (15:54)
[2021-06-09] MEDS: Enoxaparin 40 MG/0.4 ML Syringe SUBCUT SCH (15:54)
[2021-06-09] MEDS ORDERED: Polyethylene Glycol 3350 Powder 17 GM Packet PO PRN (16:16)
[2021-06-10] MEDS: Sodium Chloride 0.9% 10 ML Syringe FLUSH SCH ×10 (00:09→23:49)
[2021-06-10] MEDS: Meropenem 500 MG in Sodium Chloride 0.9% 100 ML IV SCH ×4 (00:10→23:48)
[2021-06-10] MEDS: Melatonin 3 MG Tab PO PRN ×2 (00:17→23:50)
[2021-06-10] MEDS: Metoprolol Succinate 25 MG Tab.ER PO SCH (08:16)
[2021-06-10] MEDS: Aspirin 81 MG Tab.EC PO SCH (08:16)
[2021-06-10] MEDS: Cholecalciferol (Vitamin D3) 25 MCG Tab PO SCH (08:17)
[2021-06-10] MEDS: Cyanocobalamin (Vitamin B12) 1,000 MCG Tab PO SCH (08:17)
[2021-06-10] MEDS: Multivitamin Tab PO SCH ×2 (08:17→16:03)
[2021-06-10] MEDS: Magnesium Oxide 400 MG Tab PO SCH ×2 (08:17→16:03)
[2021-06-10] MEDS: Lisinopril 5 MG Tab PO SCH (08:17)
[2021-06-10] MEDS: Rosuvastatin 10 MG Tab PO SCH (08:17)
[2021-06-10] MEDS: FLUoxetine 20 MG Cap PO SCH (08:18)
[2021-06-10] MEDS: Calcium Carbonate/Vitamin D3 625 MG-125 Unit Tab PO SCH (08:18)
[2021-06-10] MEDS: Omeprazole 20 MG Cap.CR PO SCH (08:18)
[2021-06-10 10:01] LABS: ANION GAP 6.4 meq/L (7-15); CHLORIDE,CL 107 mmol/L (98-107); SODIUM,NA 141 mmol/L (136-145)
[2021-06-10] MEDS: Levothyroxine 25 MCG Tab PO SCH (10:31)
[2021-06-10] MEDS: Montelukast 10 MG Tab PO SCH (16:03)
[2021-06-10] MEDS: Enoxaparin 40 MG/0.4 ML Syringe SUBCUT SCH (16:03)
[2021-06-11] MEDS: Meropenem 500 MG in Sodium Chloride 0.9% 100 ML IV SCH ×3 (07:25→23:24)
[2021-06-11] MEDS: Sodium Chloride 0.9% 10 ML Syringe FLUSH SCH ×9 (07:26→23:30)
[2021-06-11] MEDS: Metoprolol Succinate 25 MG Tab.ER PO SCH (07:27)
[2021-06-11] MEDS: Magnesium Oxide 400 MG Tab PO SCH ×2 (07:27→16:55)
[2021-06-11] MEDS: FLUoxetine 20 MG Cap PO SCH (07:28)
[2021-06-11] MEDS: Cholecalciferol (Vitamin D3) 25 MCG Tab PO SCH (07:28)
[2021-06-11] MEDS: Cyanocobalamin (Vitamin B12) 1,000 MCG Tab PO SCH (07:29)
[2021-06-11] MEDS: Omeprazole 20 MG Cap.CR PO SCH (07:29)
[2021-06-11] MEDS: Rosuvastatin 10 MG Tab PO SCH (07:30)
[2021-06-11] MEDS: Calcium Carbonate/Vitamin D3 625 MG-125 Unit Tab PO SCH (07:30)
[2021-06-11] MEDS: Aspirin 81 MG Tab.EC PO SCH (07:31)
[2021-06-11] MEDS: Multivitamin Tab PO SCH ×2 (07:31→16:55)
[2021-06-11] MEDS: Lisinopril 5 MG Tab PO SCH (07:31)
[2021-06-11] MEDS: Levothyroxine 25 MCG Tab PO SCH (09:50)
[2021-06-11] MEDS: Montelukast 10 MG Tab PO SCH (16:55)
[2021-06-11] MEDS: Enoxaparin 40 MG/0.4 ML Syringe SUBCUT SCH (16:56)
[2021-06-11] MEDS: Melatonin 3 MG Tab PO PRN (23:25)
[2021-06-12] MEDS: Sodium Chloride 0.9% 10 ML Syringe FLUSH SCH ×6 (08:29→18:25)
[2021-06-12] MEDS: Meropenem 500 MG in Sodium Chloride 0.9% 100 ML IV SCH ×2 (08:29→15:40)
[2021-06-12] MEDS: Metoprolol Succinate 25 MG Tab.ER PO SCH (08:30)
[2021-06-12] MEDS: Multivitamin Tab PO SCH ×2 (08:32→15:40)
[2021-06-12] MEDS: FLUoxetine 20 MG Cap PO SCH (08:32)
[2021-06-12] MEDS: Calcium Carbonate/Vitamin D3 625 MG-125 Unit Tab PO SCH (08:32)
[2021-06-12] MEDS: Rosuvastatin 10 MG Tab PO SCH (08:32)
[2021-06-12] MEDS: Omeprazole 20 MG Cap.CR PO SCH (08:32)
[2021-06-12] MEDS: Lisinopril 5 MG Tab PO SCH (08:32)
[2021-06-12] MEDS: Cholecalciferol (Vitamin D3) 25 MCG Tab PO SCH (08:33)
[2021-06-12] MEDS: Aspirin 81 MG Tab.EC PO SCH (08:33)
[2021-06-12] MEDS: Magnesium Oxide 400 MG Tab PO SCH ×2 (08:33→15:40)
[2021-06-12] MEDS: Cyanocobalamin (Vitamin B12) 1,000 MCG Tab PO SCH (08:34)
[2021-06-12] MEDS: Levothyroxine 25 MCG Tab PO SCH (12:08)
[2021-06-12] MEDS: Enoxaparin 40 MG/0.4 ML Syringe SUBCUT SCH (15:40)
[2021-06-12] MEDS: Montelukast 10 MG Tab PO SCH (15:40)
[2021-06-13] MEDS: Melatonin 3 MG Tab PO PRN ×2 (00:05→23:50)
[2021-06-13] MEDS: Sodium Chloride 0.9% 10 ML Syringe FLUSH SCH ×10 (00:10→23:54)
[2021-06-13] MEDS: Meropenem 500 MG in Sodium Chloride 0.9% 100 ML IV SCH ×4 (00:10→23:53)
[2021-06-13] MEDS: Magnesium Oxide 400 MG Tab PO SCH ×2 (08:13→16:42)
[2021-06-13] MEDS: Aspirin 81 MG Tab.EC PO SCH (08:14)
[2021-06-13] MEDS: Cholecalciferol (Vitamin D3) 25 MCG Tab PO SCH (08:14)
[2021-06-13] MEDS: Metoprolol Succinate 25 MG Tab.ER PO SCH (08:14)
[2021-06-13] MEDS: Calcium Carbonate/Vitamin D3 625 MG-125 Unit Tab PO SCH (08:14)
[2021-06-13] MEDS: Omeprazole 20 MG Cap.CR PO SCH (08:14)
[2021-06-13] MEDS: Cyanocobalamin (Vitamin B12) 1,000 MCG Tab PO SCH (08:14)
[2021-06-13] MEDS: Multivitamin Tab PO SCH ×2 (08:14→16:42)
[2021-06-13] MEDS: FLUoxetine 20 MG Cap PO SCH (08:14)
[2021-06-13] MEDS: Rosuvastatin 10 MG Tab PO SCH (08:15)
[2021-06-13] MEDS: Lisinopril 5 MG Tab PO SCH (08:15)
[2021-06-13] MEDS: Levothyroxine 25 MCG Tab PO SCH (10:26)
[2021-06-13] MEDS: Enoxaparin 40 MG/0.4 ML Syringe SUBCUT SCH (16:41)
[2021-06-13] MEDS: Montelukast 10 MG Tab PO SCH (16:42)
[2021-06-13] MEDS: Polyvinyl Alcohol 1.4% Ophth Soln 15 ML Bottle EYEBOTH PRN (17:02)
[2021-06-14] MEDS: Meropenem 500 MG in Sodium Chloride 0.9% 100 ML IV SCH ×3 (08:37→23:45)
[2021-06-14] MEDS: Metoprolol Succinate 25 MG Tab.ER PO SCH (08:38)
[2021-06-14] MEDS: Acetaminophen 500 MG Tab PO PRN ×2 (08:39→16:46)
[2021-06-14] MEDS: Lisinopril 5 MG Tab PO SCH (08:40)
[2021-06-14] MEDS: Sodium Chloride 0.9% 10 ML Syringe FLUSH SCH ×8 (08:44→23:46)
[2021-06-14] MEDS: Omeprazole 20 MG Cap.CR PO SCH (08:46)
[2021-06-14] MEDS: Calcium Carbonate/Vitamin D3 625 MG-125 Unit Tab PO SCH (08:46)
[2021-06-14] MEDS: FLUoxetine 20 MG Cap PO SCH (08:46)
[2021-06-14] MEDS: Aspirin 81 MG Tab.EC PO SCH (08:46)
[2021-06-14] MEDS: Multivitamin Tab PO SCH ×2 (08:46→16:40)
[2021-06-14] MEDS: Cholecalciferol (Vitamin D3) 25 MCG Tab PO SCH (08:46)
[2021-06-14] MEDS: Rosuvastatin 10 MG Tab PO SCH (08:47)
[2021-06-14] MEDS: Cyanocobalamin (Vitamin B12) 1,000 MCG Tab PO SCH (08:47)
[2021-06-14] MEDS: Magnesium Oxide 400 MG Tab PO SCH ×2 (08:47→16:40)
[2021-06-14] MEDS: Levothyroxine 25 MCG Tab PO SCH (09:30)
[2021-06-14] MEDS: Enoxaparin 40 MG/0.4 ML Syringe SUBCUT SCH (16:39)
[2021-06-14] MEDS: Montelukast 10 MG Tab PO SCH (16:40)
[2021-06-14] MEDS: Polyvinyl Alcohol 1.4% Ophth Soln 15 ML Bottle EYEBOTH PRN (16:47)
[2021-06-14] MEDS: Melatonin 3 MG Tab PO PRN (23:47)
[2021-06-15] MEDS: Metoprolol Succinate 25 MG Tab.ER PO SCH (08:38)
[2021-06-15] MEDS: Omeprazole 20 MG Cap.CR PO SCH (08:39)
[2021-06-15] MEDS: Calcium Carbonate/Vitamin D3 625 MG-125 Unit Tab PO SCH (08:40)
[2021-06-15] MEDS: Rosuvastatin 10 MG Tab PO SCH (08:40)
[2021-06-15] MEDS: Aspirin 81 MG Tab.EC PO SCH (08:40)
[2021-06-15] MEDS: FLUoxetine 20 MG Cap PO SCH (08:40)
[2021-06-15] MEDS: Magnesium Oxide 400 MG Tab PO SCH ×2 (08:41→16:10)
[2021-06-15] MEDS: Cyanocobalamin (Vitamin B12) 1,000 MCG Tab PO SCH (08:41)
[2021-06-15] MEDS: Cholecalciferol (Vitamin D3) 25 MCG Tab PO SCH (08:41)
[2021-06-15] MEDS: Lisinopril 5 MG Tab PO SCH (08:42)
[2021-06-15] MEDS: Multivitamin Tab PO SCH ×2 (08:42→16:11)
[2021-06-15] MEDS: Sodium Chloride 0.9% 10 ML Syringe FLUSH SCH ×8 (08:43→23:41)
[2021-06-15] MEDS: Meropenem 500 MG in Sodium Chloride 0.9% 100 ML IV SCH ×3 (08:43→23:12)
[2021-06-15] MEDS: Levothyroxine 25 MCG Tab PO SCH (09:30)
[2021-06-15] MEDS: Acetaminophen 500 MG Tab PO PRN ×2 (09:30→23:13)
[2021-06-15] MEDS: Montelukast 10 MG Tab PO SCH (16:11)
[2021-06-15] MEDS: Enoxaparin 40 MG/0.4 ML Syringe SUBCUT SCH (16:11)
[2021-06-15] MEDS: Melatonin 3 MG Tab PO PRN (23:14)
[2021-06-16] MEDS: Meropenem 500 MG in Sodium Chloride 0.9% 100 ML IV SCH ×3 (08:26→23:31)
[2021-06-16] MEDS: Sodium Chloride 0.9% 10 ML Syringe FLUSH SCH ×8 (08:27→23:31)
[2021-06-16] MEDS: Aspirin 81 MG Tab.EC PO SCH (08:31)
[2021-06-16] MEDS: Calcium Carbonate/Vitamin D3 625 MG-125 Unit Tab PO SCH (08:31)
[2021-06-16] MEDS: Multivitamin Tab PO SCH ×2 (08:31→16:09)
[2021-06-16] MEDS: Cyanocobalamin (Vitamin B12) 1,000 MCG Tab PO SCH (08:32)
[2021-06-16] MEDS: Magnesium Oxide 400 MG Tab PO SCH ×2 (08:32→16:09)
[2021-06-16] MEDS: Lisinopril 5 MG Tab PO SCH (08:32)
[2021-06-16] MEDS: Omeprazole 20 MG Cap.CR PO SCH (08:33)
[2021-06-16] MEDS: Cholecalciferol (Vitamin D3) 25 MCG Tab PO SCH (08:34)
[2021-06-16] MEDS: FLUoxetine 20 MG Cap PO SCH (08:34)
[2021-06-16] MEDS: Metoprolol Succinate 25 MG Tab.ER PO SCH (08:34)
[2021-06-16] MEDS: Rosuvastatin 10 MG Tab PO SCH (08:34)
[2021-06-16] MEDS: Acetaminophen 500 MG Tab PO PRN ×2 (08:49→23:45)
[2021-06-16] MEDS: Levothyroxine 25 MCG Tab PO SCH (10:03)
[2021-06-16] MEDS: Enoxaparin 40 MG/0.4 ML Syringe SUBCUT SCH (16:08)
[2021-06-16] MEDS: Montelukast 10 MG Tab PO SCH (16:09)
[2021-06-16] MEDS: Melatonin 3 MG Tab PO PRN (23:45)
[2021-06-17] MEDS: Lisinopril 5 MG Tab PO SCH (07:49)
[2021-06-17] MEDS: Acetaminophen 500 MG Tab PO PRN ×2 (07:50→23:24)
[2021-06-17] MEDS: Rosuvastatin 10 MG Tab PO SCH (07:51)
[2021-06-17] MEDS: Cholecalciferol (Vitamin D3) 25 MCG Tab PO SCH (07:51)
[2021-06-17] MEDS: Metoprolol Succinate 25 MG Tab.ER PO SCH (07:52)
[2021-06-17] MEDS: Cyanocobalamin (Vitamin B12) 1,000 MCG Tab PO SCH (07:53)
[2021-06-17] MEDS: Aspirin 81 MG Tab.EC PO SCH (07:53)
[2021-06-17] MEDS: Calcium Carbonate/Vitamin D3 625 MG-125 Unit Tab PO SCH (07:54)
[2021-06-17] MEDS: Multivitamin Tab PO SCH ×2 (07:54→17:29)
[2021-06-17] MEDS: Omeprazole 20 MG Cap.CR PO SCH (07:55)
[2021-06-17] MEDS: FLUoxetine 20 MG Cap PO SCH (07:55)
[2021-06-17] MEDS: Magnesium Oxide 400 MG Tab PO SCH ×2 (07:55→17:28)
[2021-06-17] MEDS: Sodium Chloride 0.9% 10 ML Syringe FLUSH SCH ×8 (07:56→23:53)
[2021-06-17] MEDS: Meropenem 500 MG in Sodium Chloride 0.9% 100 ML IV SCH ×3 (07:57→23:24)
[2021-06-17 09:44] LABS: CHLORIDE,CL 108 mmol/L (98-107); SODIUM,NA 142 mmol/L (136-145)
[2021-06-17 09:47] LABS: ANION GAP 11.8 meq/L (7-15)
[2021-06-17] MEDS: Levothyroxine 25 MCG Tab PO SCH (10:01)
[2021-06-17] MEDS: Enoxaparin 40 MG/0.4 ML Syringe SUBCUT SCH (17:28)
[2021-06-17] MEDS: Montelukast 10 MG Tab PO SCH (17:29)
[2021-06-17] MEDS: Melatonin 3 MG Tab PO PRN (23:53)
[2021-06-18] MEDS: Calcium Carbonate/Vitamin D3 625 MG-125 Unit Tab PO SCH (07:39)
[2021-06-18] MEDS: Cyanocobalamin (Vitamin B12) 1,000 MCG Tab PO SCH (07:39)
[2021-06-18] MEDS: Magnesium Oxide 400 MG Tab PO SCH ×2 (07:40→15:40)
[2021-06-18] MEDS: Multivitamin Tab PO SCH ×2 (07:40→15:41)
[2021-06-18] MEDS: Aspirin 81 MG Tab.EC PO SCH (07:40)
[2021-06-18] MEDS: Acetaminophen 500 MG Tab PO PRN ×2 (07:40→23:09)
[2021-06-18] MEDS: Omeprazole 20 MG Cap.CR PO SCH (07:40)
[2021-06-18] MEDS: FLUoxetine 20 MG Cap PO SCH (07:41)
[2021-06-18] MEDS: Rosuvastatin 10 MG Tab PO SCH (07:41)
[2021-06-18] MEDS: Cholecalciferol (Vitamin D3) 25 MCG Tab PO SCH (07:41)
[2021-06-18] MEDS: Metoprolol Succinate 25 MG Tab.ER PO SCH (07:42)
[2021-06-18] MEDS: Lisinopril 5 MG Tab PO SCH (07:42)
[2021-06-18] MEDS: Sodium Chloride 0.9% 10 ML Syringe FLUSH SCH ×8 (07:43→23:38)
[2021-06-18] MEDS: Meropenem 500 MG in Sodium Chloride 0.9% 100 ML IV SCH ×3 (07:43→23:09)
[2021-06-18] MEDS: Levothyroxine 25 MCG Tab PO SCH (09:35)
[2021-06-18] MEDS: Enoxaparin 40 MG/0.4 ML Syringe SUBCUT SCH (15:40)
[2021-06-18] MEDS: Montelukast 10 MG Tab PO SCH (15:41)
[2021-06-18] MEDS: Melatonin 3 MG Tab PO PRN (23:38)
[2021-06-19] MEDS: Cholecalciferol (Vitamin D3) 25 MCG Tab PO SCH (09:09)
[2021-06-19] MEDS: Aspirin 81 MG Tab.EC PO SCH (09:10)
[2021-06-19] MEDS: Cyanocobalamin (Vitamin B12) 1,000 MCG Tab PO SCH (09:10)
[2021-06-19] MEDS: Magnesium Oxide 400 MG Tab PO SCH ×2 (09:10→16:19)
[2021-06-19] MEDS: Multivitamin Tab PO SCH ×2 (09:10→16:19)
[2021-06-19] MEDS: FLUoxetine 20 MG Cap PO SCH (09:10)
[2021-06-19] MEDS: Calcium Carbonate/Vitamin D3 625 MG-125 Unit Tab PO SCH (09:10)
[2021-06-19] MEDS: Levothyroxine 25 MCG Tab PO SCH (09:10)
[2021-06-19] MEDS: Meropenem 500 MG in Sodium Chloride 0.9% 100 ML IV SCH ×3 (09:11→23:48)
[2021-06-19] MEDS: Omeprazole 20 MG Cap.CR PO SCH (09:11)
[2021-06-19] MEDS: Rosuvastatin 10 MG Tab PO SCH (09:11)
[2021-06-19] MEDS: Sodium Chloride 0.9% 10 ML Syringe FLUSH SCH ×9 (09:11→23:48)
[2021-06-19] MEDS: Metoprolol Succinate 25 MG Tab.ER PO SCH (09:12)
[2021-06-19] MEDS: Lisinopril 5 MG Tab PO SCH (09:15)
[2021-06-19] MEDS: Acetaminophen 500 MG Tab PO PRN ×2 (09:26→23:47)
[2021-06-19 11:05] LABS: CHLORIDE,CL 108 mmol/L (98-107); SODIUM,NA 141 mmol/L (136-145)
[2021-06-19 11:07] LABS: ANION GAP 11.2 meq/L (7-15)
[2021-06-19 11:15] LABS: HEMOGLOBIN A1C 5.5 % (4.3-5.7)
[2021-06-19] MEDS: Montelukast 10 MG Tab PO SCH (16:19)
[2021-06-19] MEDS: Melatonin 3 MG Tab PO PRN (23:47)
[2021-06-20] MEDS: Meropenem 500 MG in Sodium Chloride 0.9% 100 ML IV SCH ×2 (07:48→16:51)
[2021-06-20] MEDS: Omeprazole 20 MG Cap.CR PO SCH (07:52)
[2021-06-20] MEDS: Rosuvastatin 10 MG Tab PO SCH (07:52)
[2021-06-20] MEDS: FLUoxetine 20 MG Cap PO SCH (07:52)
[2021-06-20] MEDS: Cholecalciferol (Vitamin D3) 25 MCG Tab PO SCH (07:52)
[2021-06-20] MEDS: Sodium Chloride 0.9% 10 ML Syringe FLUSH SCH ×6 (07:52→16:50)
[2021-06-20] MEDS: Calcium Carbonate/Vitamin D3 625 MG-125 Unit Tab PO SCH (07:52)
[2021-06-20] MEDS: Multivitamin Tab PO SCH ×2 (07:53→16:50)
[2021-06-20] MEDS: Lisinopril 5 MG Tab PO SCH (07:53)
[2021-06-20] MEDS: Magnesium Oxide 400 MG Tab PO SCH ×2 (07:53→16:51)
[2021-06-20] MEDS: Metoprolol Succinate 25 MG Tab.ER PO SCH (07:54)
[2021-06-20] MEDS: Cyanocobalamin (Vitamin B12) 1,000 MCG Tab PO SCH (07:55)
[2021-06-20] MEDS: Aspirin 81 MG Tab.EC PO SCH (07:56)
[2021-06-20] MEDS: Acetaminophen 500 MG Tab PO PRN ×2 (08:10→23:59)
[2021-06-20] MEDS: Levothyroxine 25 MCG Tab PO SCH (09:58)
[2021-06-20] MEDS: Montelukast 10 MG Tab PO SCH (16:51)
[2021-06-20] MEDS: Melatonin 3 MG Tab PO PRN (23:59)
[2021-06-21] MEDS: Meropenem 500 MG in Sodium Chloride 0.9% 100 ML IV SCH ×5 (08:06→23:40)
[2021-06-21] MEDS: Cholecalciferol (Vitamin D3) 25 MCG Tab PO SCH (08:11)
[2021-06-21] MEDS: Omeprazole 20 MG Cap.CR PO SCH (08:11)
[2021-06-21] MEDS: Rosuvastatin 10 MG Tab PO SCH (08:11)
[2021-06-21] MEDS: Aspirin 81 MG Tab.EC PO SCH (08:11)
[2021-06-21] MEDS: Calcium Carbonate/Vitamin D3 625 MG-125 Unit Tab PO SCH (08:12)
[2021-06-21] MEDS: Multivitamin Tab PO SCH ×2 (08:12→16:37)
[2021-06-21] MEDS: Cyanocobalamin (Vitamin B12) 1,000 MCG Tab PO SCH (08:12)
[2021-06-21] MEDS: FLUoxetine 20 MG Cap PO SCH (08:12)
[2021-06-21] MEDS: Magnesium Oxide 400 MG Tab PO SCH ×2 (08:12→16:37)
[2021-06-21] MEDS: Lisinopril 5 MG Tab PO SCH (08:13)
[2021-06-21] MEDS: Acetaminophen 500 MG Tab PO PRN ×2 (08:15→23:39)
[2021-06-21] MEDS: Metoprolol Succinate 25 MG Tab.ER PO SCH (08:16)
[2021-06-21] MEDS: Sodium Chloride 0.9% 10 ML Syringe FLUSH SCH ×11 (08:18→23:38)
[2021-06-21] MEDS: Levothyroxine 25 MCG Tab PO SCH (10:18)
[2021-06-21] MEDS: Montelukast 10 MG Tab PO SCH (16:37)
[2021-06-21] MEDS: Melatonin 3 MG Tab PO PRN (23:40)
[2021-06-22] MEDS: Sodium Chloride 0.9% 10 ML Syringe FLUSH SCH ×8 (08:04→23:37)
[2021-06-22] MEDS: Meropenem 500 MG in Sodium Chloride 0.9% 100 ML IV SCH ×3 (08:07→23:35)
[2021-06-22] MEDS: Calcium Carbonate/Vitamin D3 625 MG-125 Unit Tab PO SCH (08:12)
[2021-06-22] MEDS: Omeprazole 20 MG Cap.CR PO SCH (08:12)
[2021-06-22] MEDS: FLUoxetine 20 MG Cap PO SCH (08:12)
[2021-06-22] MEDS: Multivitamin Tab PO SCH ×2 (08:13→16:22)
[2021-06-22] MEDS: Rosuvastatin 10 MG Tab PO SCH (08:13)
[2021-06-22] MEDS: Aspirin 81 MG Tab.EC PO SCH (08:13)
[2021-06-22] MEDS: Cyanocobalamin (Vitamin B12) 1,000 MCG Tab PO SCH (08:14)
[2021-06-22] MEDS: Magnesium Oxide 400 MG Tab PO SCH ×2 (08:14→16:22)
[2021-06-22] MEDS: Cholecalciferol (Vitamin D3) 25 MCG Tab PO SCH (08:15)
[2021-06-22] MEDS: Lisinopril 5 MG Tab PO SCH (08:15)
[2021-06-22] MEDS: Metoprolol Succinate 25 MG Tab.ER PO SCH (08:16)
[2021-06-22] MEDS: Acetaminophen 500 MG Tab PO PRN ×2 (08:19→23:35)
[2021-06-22] MEDS: Levothyroxine 25 MCG Tab PO SCH (09:53)
[2021-06-22] MEDS: Montelukast 10 MG Tab PO SCH (16:22)
[2021-06-22] MEDS: Melatonin 3 MG Tab PO PRN (23:35)
[2021-06-23] MEDS: Sodium Chloride 0.9% 10 ML Syringe FLUSH SCH ×8 (07:43→23:37)
[2021-06-23] MEDS: Aspirin 81 MG Tab.EC PO SCH (07:46)
[2021-06-23] MEDS: Magnesium Oxide 400 MG Tab PO SCH ×2 (07:46→16:17)
[2021-06-23] MEDS: Rosuvastatin 10 MG Tab PO SCH (07:47)
[2021-06-23] MEDS: Meropenem 500 MG in Sodium Chloride 0.9% 100 ML IV SCH ×3 (07:47→23:35)
[2021-06-23] MEDS: Cyanocobalamin (Vitamin B12) 1,000 MCG Tab PO SCH (08:00)
[2021-06-23] MEDS: Metoprolol Succinate 25 MG Tab.ER PO SCH (08:00)
[2021-06-23] MEDS: Multivitamin Tab PO SCH ×2 (08:00→16:18)
[2021-06-23] MEDS: Lisinopril 5 MG Tab PO SCH (08:00)
[2021-06-23] MEDS: Calcium Carbonate/Vitamin D3 625 MG-125 Unit Tab PO SCH (08:00)
[2021-06-23] MEDS: Acetaminophen 500 MG Tab PO PRN ×2 (09:09→23:46)
[2021-06-23] MEDS: Levothyroxine 25 MCG Tab PO SCH (10:50)
[2021-06-23] MEDS: Cholecalciferol (Vitamin D3) 25 MCG Tab PO SCH (12:23)
[2021-06-23] MEDS: FLUoxetine 20 MG Cap PO SCH (12:24)
[2021-06-23] MEDS: Omeprazole 20 MG Cap.CR PO SCH (12:24)
[2021-06-23] MEDS: Montelukast 10 MG Tab PO SCH (16:17)
[2021-06-23] MEDS: Melatonin 3 MG Tab PO PRN (23:47)
[2021-06-24] MEDS: Meropenem 500 MG in Sodium Chloride 0.9% 100 ML IV SCH ×3 (08:09→23:35)
[2021-06-24] MEDS: Sodium Chloride 0.9% 10 ML Syringe FLUSH SCH ×8 (08:09→23:35)
[2021-06-24] MEDS: Rosuvastatin 10 MG Tab PO SCH (08:14)
[2021-06-24] MEDS: Multivitamin Tab PO SCH ×2 (08:14→16:06)
[2021-06-24] MEDS: Omeprazole 20 MG Cap.CR PO SCH (08:14)
[2021-06-24] MEDS: Lisinopril 5 MG Tab PO SCH (08:15)
[2021-06-24] MEDS: Aspirin 81 MG Tab.EC PO SCH (08:15)
[2021-06-24] MEDS: FLUoxetine 20 MG Cap PO SCH (08:16)
[2021-06-24] MEDS: Acetaminophen 500 MG Tab PO PRN ×2 (08:16→23:36)
[2021-06-24] MEDS: Magnesium Oxide 400 MG Tab PO SCH ×2 (08:16→16:06)
[2021-06-24] MEDS: Cyanocobalamin (Vitamin B12) 1,000 MCG Tab PO SCH (08:17)
[2021-06-24] MEDS: Metoprolol Succinate 25 MG Tab.ER PO SCH (08:18)
[2021-06-24] MEDS: Cholecalciferol (Vitamin D3) 25 MCG Tab PO SCH (08:19)
[2021-06-24] MEDS: Calcium Carbonate/Vitamin D3 625 MG-125 Unit Tab PO SCH (08:22)
[2021-06-24] MEDS: Levothyroxine 25 MCG Tab PO SCH (09:58)
[2021-06-24] MEDS: Montelukast 10 MG Tab PO SCH (16:06)
[2021-06-24] MEDS: Melatonin 3 MG Tab PO PRN (23:37)
[2021-06-25 08:00] LABS: CHLORIDE,CL 109 mmol/L (98-107); SODIUM,NA 144 mmol/L (136-145)
[2021-06-25 08:02] LABS: ANION GAP 10.1 meq/L (7-15)
[2021-06-25] MEDS: Metoprolol Succinate 25 MG Tab.ER PO SCH (08:16)
[2021-06-25] MEDS: Calcium Carbonate/Vitamin D3 625 MG-125 Unit Tab PO SCH (08:18)
[2021-06-25] MEDS: Multivitamin Tab PO SCH (08:18)
[2021-06-25] MEDS: Cholecalciferol (Vitamin D3) 25 MCG Tab PO SCH (08:18)
[2021-06-25] MEDS: Rosuvastatin 10 MG Tab PO SCH (08:18)
[2021-06-25] MEDS: Omeprazole 20 MG Cap.CR PO SCH (08:18)
[2021-06-25] MEDS: Cyanocobalamin (Vitamin B12) 1,000 MCG Tab PO SCH (08:18)
[2021-06-25] MEDS: Magnesium Oxide 400 MG Tab PO SCH (08:20)
[2021-06-25] MEDS: Aspirin 81 MG Tab.EC PO SCH (08:20)
[2021-06-25] MEDS: Lisinopril 5 MG Tab PO SCH (08:20)
[2021-06-25] MEDS: FLUoxetine 20 MG Cap PO SCH (08:21)
[2021-06-25] MEDS: Meropenem 500 MG in Sodium Chloride 0.9% 100 ML IV SCH (08:22)
[2021-06-25] MEDS: Sodium Chloride 0.9% 10 ML Syringe FLUSH SCH ×3 (08:22→09:53)
[2021-06-25] MEDS: Acetaminophen 500 MG Tab PO PRN (08:23)
[2021-06-25] MEDS: Levothyroxine 25 MCG Tab PO SCH (09:53)
== END 2021-06-25 13:35 | disposition home or self-care (01) | DRG 949 ==
LOC: LL.MS 13:38
PROVIDERS: ADMIT Physician Assistant; ATTEND Physician Assistant
DX: T81.49XD Infection following a procedure, other surgical site, subsequent encounter (principal); C34.91 Malignant neoplasm of unspecified part of right bronchus or lung; H54.7 Unspecified visual loss; G47.30 Sleep apnea, unspecified; N40.0 Benign prostatic hyperplasia without lower urinary tract symptoms; E66.9 Obesity, unspecified; Z98.84 Bariatric surgery status; Z68.28 Body mass index [BMI] 28.0-28.9, adult; Z88.1 Allergy status to other antibiotic agents; Z79.82 Long term (current) use of aspirin; Z79.890 Hormone replacement therapy; Z79.899 Other long term (current) drug therapy
CPT/HCPCS: 36415; 71046; 76881-RT; 80053; 80202; 82607; 82728; 82746; 82947; 83036; 83540; 83550; 83615; 83735; 84443; 84550; 85025; 85046; 86140; 97110-GO; 97110-GP; 97162-GP; 97165-GO; 97530-GO; 97530-GP; 97535-GO; A9270-GY; J1642; J1650; J2185; J2997; J3370; J7050

== ENCOUNTER 2023-08-23 14:07 | Emergency (ER) | payer MEDICARE ==
[2023-08-23 15:03] LABS: ANION GAP 6.9 meq/L (7-15); BLOOD UREA NITROGEN,BUN 17 mg/dL (7-18); CARBON DIOXIDE,CO2 23.1 mmol/L (21.0-32.0); CHLORIDE,CL 107 mmol/L (98-107); CREATININE 1.24 mg/dL (0.51-1.17); GLUCOSE RANDOM 182 mg/dL (70-99); POTASSIUM,K 4.6 mmol/L (3.5-5.1); SODIUM,NA 137 mmol/L (136-145)
[2023-08-23 15:04] LABS: ESTIMATED GFR 62 mL/min (>=60)
[2023-08-23 15:05] LABS: ALBUMIN 1.9 g/dL (3.4-5.0); MAGNESIUM 1.8 mg/dL (1.8-2.4); PHOSPHORUS 2.2 mg/dL (2.6-4.7)
[2023-08-23 15:06] LABS: CALCIUM 5.8 mg/dL (8.5-10.1)
[2023-08-23] MEDS: Calcium Gluc in NaCl, ISO-OSM 1,000 MG in Premix Bag 1 BAG IV ONE (15:31)
[2023-08-23] MEDS: Calcium Carbonate 500 MG Tab.Chew PO ONE ×2 (16:18→16:29)
[2023-08-23 16:34] VITALS: BP 119/84; PULSE 68
== END 2023-08-23 17:02 ==
LOC: LL.ED 14:07
DX: E83.51 Hypocalcemia (principal); E83.39 Other disorders of phosphorus metabolism; E88.09 Other disorders of plasma-protein metabolism, not elsewhere classified; Z88.1 Allergy status to other antibiotic agents; Z79.899 Other long term (current) drug therapy; Z79.82 Long term (current) use of aspirin
CPT/HCPCS: 36415; 80048; 82040; 83735; 84100; 96365; 99284; 99285-25; A9270-GY; J0612